=== PATIENT | female | born 1940 | race Asian ===

== ENCOUNTER → 2020-06-10 10:14 | Outpatient (CLI) | payer OTHER, SELFPAY ==
[2020-06-10 13:51] LABS: COVID19 -Nasal RAPID Negative (Negative)
== END ==
PROVIDERS: Visit Provider Physician Assistant
DX: Z20.822 Contact with and (suspected) exposure to COVID-19 (principal)
CPT/HCPCS: 87635; C9803

== ENCOUNTER 2020-06-12 07:44 | Day surgery (SDC) | payer OTHER, SELFPAY ==
[2020-06-12] VITALS (10 sets, daily range): BP systolic 124–167; BP diastolic 65–85; PULSE 65–679; RESP 13–18; TEMP 36.2–36.9; O2SAT 94–99; BMI 25.9
--- NOTE | 2020-06-12 | PATH_ITS ---
[facility] Accession Number: [id number] . 01 Material submitted: . PART A: stomach - STOMACH PART B: esophagus - ESOPHAGUS . 01 Clinical history: . A: FOR H.P B: R/O PIZANO'S . 02 Diagnosis: A. Stomach, Biopsy: Gastric antral mucosa with minimal chronic inflammation. Negative for Helicobacter organisms by immunohistochemistry. Negative for intestinal metaplasia. Negative for dysplasia or malignancy. . B. Esophagus, Biopsy: Squamocolumnar junctional mucosa with mild chronic inflammation. Negative for specialized intestinal metaplasia on AB/PAS stain. Negative for dysplasia or malignancy. MRV 06/18/2020 1352 Local . 02 Electronically signed: . Oneal Knott MD, PhD, Pathologist NPI- [id number] . 01 Gross description: . Part A: STOMACH: Received in formalin is 1 fragment(s) of larios, soft tissue measuring 0.3 x 0.2 x 0.2 cm submitted entirely in 1 cassette(s) Part B: ESOPHAGUS: Received in formalin are 2 fragment(s) of larios, soft tissue measuring 0.1 x 0.1 x 0.1 cm to 0.2 x 0.2 x 0.2 cm submitted entirely in 1 cassette(s) /LAMBERTO 06/14/2020 2316 Local . 02 Microscopic: . A. An immunohistochemical stain was performed to evaluate for Helicobacter organisms and is negative. The control stain showed appropriate reactivity. . B. An AB/PAS stain was performed to evaluate for specialized intestinal metaplasia, and is negative for goblet cells. A control stain shows appropriate reactivity. . . * This test was developed and its performance characteristics determined by [facility]. It has not been cleared or approved by the U.S. Food and Drug Administration. The FDA has determined that such clearance or approval is not necessary. This test is used for clinical purposes. It should not be regarded as investigational or for research. . 02 Pathologist provided ICD-10: K29.70, K20.80 . 02 CPT . 134142, 331357, U34812, [id number] Performed at: [facility] [address] [id number] MD Lalito Tavera MD Phone: [phone] Performed at: [address] [id number] MD Merari Chambers MD Phone: [phone]
[2020-06-12] MEDS: SODIUM CHLORIDE 0.9% 1,000 ML 84 ML IV (08:25)
--- NOTE | 2020-06-12 08:42 | P.HP_ITS ---
History of Present Illness History of Present Illness Date Patient Seen: 06/12/20 Chief complaint: SDC Narrative: History of heartburn and epigastric pain Patient History Family & Social History Social History: household members children Tobacco & Substance use: Smoking Status Never smoker alcohol intake never Substance Use Type does not use Meds Home Medications and Allergies Home Medications Medication Instructions Recorded Confirmed Type atorvastatin 20 mg PO DAILY 06/12/20 06/12/20 History famotidine 40 mg PO DAILY 06/12/20 06/12/20 History pantoprazole 40 mg PO DAILY 06/12/20 06/12/20 History Allergies Allergy/AdvReac Type Severity Reaction Status Date / Time aspirin Allergy Severe Anaphylaxis Verified 06/12/20 08:01 Exam Vital Signs (past 8 hours): - 06/12/20 08:16 Temperature 98.4 F Pulse Rate 80 Respiratory Rate 16 Blood Pressure 167/85 H Pulse Oximetry 99 Oxygen Delivery Method Room Air Narrative Exam Narrative: Oropharynx free of lesions Chest clear to auscultation percussion Cardiac exam reveals no S3 or murmur Assessment & Plan Assessment & Plan narrative: History of heartburn and epigastric pain only partly relieved by pantoprazole. Rule out GE reflux. Rule out peptic disease. Risks, benefits, alternatives have been explained. Further recommendation will follow-up results of the EGD. Quality MIPS - Admit Advanced Care Plan / Current Medications Measures: #47 ? Advanced Care Plan Clinician documentation instruction: document at admission. [] I confirmed that the patient's Advance Care Plan is present, code status is documented, or surrogate decision maker is listed in the patient?s medical record. [SATISFIES [facility] PERFORMANCE] If Yes, Stop Here [] The patient?s Advance Care plan is not present because: (select) [MIPS PERFORMANCE EXCEPTION/EXCLUSION] [] I confirmed today that the patient does not wish or was not able to name a surrogate decision maker or provide an Advance Care Plan. [] Hospice care is currently being provided or has been provided this calendar year [] I did NOT confirm today the presence of an Advance Care Plan or surrogate decision maker documented within the patient's medical record. [DOES NOT SATISFY MIPS PERFORMANCE] #130 - Documentation of Current Medications in the Medical Record Clinician documentation instruction: use macro the first time you see a patient. [] I have utilized all available immediate resources to obtain, update, or review the patient?s current medications. [SATISFIES MIPS PERFORMANCE] If Yes, Stop Here [] The patient is not eligible for medication reconciliation; the patient is in an emergent medical situation where delaying treatment would jeopardize the patient?s health. [MIPS PERFORMANCE EXCEPTION/EXCLUSION] [] I did NOT confirm, update or review the patient's current list of medications today. [DOES NOT SATISFY MIPS PERFORMANCE] MIPS - CL Central Venous Catheter Placement Measure: #76 ? Prevention of Central Venous Catheter (CVC) ? Related Bloodstream Infection Clinician documentation instruction: use macro every time you place a central line. [] All elements of Maximal Sterile Barrier Technique, including hand hygiene, skin prep, and sterile ultrasound technique (if used) were followed. [SATISFIES MIPS PERFORMANCE] If Yes, Stop Here [] If ?No?, the medical reason all elements were NOT used for medical reason [] (ex. emergent condition). [] Maximal Sterile Barrier Technique was not followed, no reason provided [DOES NOT SATISFY MIPS PERFORMANCE] MIPS - DC Heart Failure Measures: #5 - Heart Failure (HF): Angiotensin-Converting Enzyme (ED) Inhibitor or Angiotensin Receptor Scott (ARB) Therapy for Left Ventricular Systolic Dysfunction (LVSD) and #8 - Heart Failure (HF): Beta-Scott Therapy for Left Ventricular Systolic Dysfunction (LVSD) Clinician documentation instruction: use macro at every CHF discharge. [] The patient has current or prior documentation of left ventricular ejection fraction (LVEF) less than 40%, or moderate or severely depressed left ventricular systolic function. Answer both: [SATISFIES MIPS PERFORMANCE] [] The patient was prescribed or already taking an Angiotensin-Converting Enzyme (ED) Inhibitor, or Angiotensin Receptor Scott (ARB). [] The patient was prescribed or already taking a beta-scott. If Yes to Both, Stop Here [] Patient not prescribed/taking: [MIPS PERFORMANCE EXCEPTION/EXCLUSION] [] ED or ARB for medical/patient/system reason(s) including [] (ex. allergy, intolerance, contraindication) [] Beta-scott for medical/patient/system reason(s) including [] (ex. allergy, intolerance, contraindication) [] Patient not prescribed/taking: [DOES NOT SATISFY MIPS PERFORMANCE] [] ED or ARB, no reason given [] Beta-scott, no reason given
--- NOTE | 2020-06-12 08:44 | PM.OP.ENDO ---
Operative Date/Time/Diagnoses Date of procedure: 06/12/20 Pre-op diagnosis: See indication and findings Procedure & Clinicians Study performed: EGD Indications: Heartburn and epigastric pain Surgeon: Sailaja Gomez Procedure Notes Procedure in detail: After informed consent was obtained the patient was placed in left lateral decubitus position. The video upper scope was placed into the oropharynx and with the patient's help swelled into the esophagus. The esophagus, and stomach, duodenum were carefully examined. On withdrawal, retroflexed view the GE junction was performed. The scope was removed. The patient tolerated procedure well. Blood loss none Complications none Sedation Total sedation time 12 minutes Versed 3 mg fentanyl 100 micro g IV titration Findings 1. One 1 cm tongue of abnormal tissue above the top of the GB folds at the GE junction. Two biopsies taken of it to rule out Vargas's esophagus. 2. No esophagitis seen 3. Striped gastric erythema in the antrum biopsies taken to rule out Helicobacter 4. One erosion seen in duodenal bulb otherwise negative duodenal bulb and sweep. Patient should continue her pantoprazole. We will be in touch regarding her pathology. She can follow up with a as needed basis with Dr. Sanchez
[2020-06-12] MEDS: fentaNYL 250 MCG/5 ML INJ IV (09:13)
[2020-06-12] MEDS: MIDAZOLAM 5 MG/5 ML VIAL IV (09:15)
--- NOTE | 2020-06-12 09:57 | SUR.PHASEI ---
Patient remains drowsy but arousable, taking gingerale without difficulty.
== END 2020-06-12 10:25 | disposition home or self-care (01) ==
PROVIDERS: Referring Provider Internal Medicine Gastroenterology; Visit Provider Internal Medicine Gastroenterology
PROC: 0DJ08ZZ Inspection of Upper Intestinal Tract, Via Natural or Artificial Opening Endoscopic (ICD-10-PCS; CPT 43235; principal; 2020-06-12 09:00)
DX: K29.50 Unspecified chronic gastritis without bleeding (principal); K20.90 Esophagitis, unspecified without bleeding
CPT/HCPCS: 43239; J2250; J3010